=== PATIENT | male | born 1970 | race Caucasian/White ===

== ENCOUNTER 2021-07-29 13:57 | Emergency (ER) | payer OTHER ==
--- NOTE | 2021-07-29 14:52 | XRAY Report ---
PROCEDURE: Hand 3 View RT INDICATIONS: trauma TECHNIQUE: 3 views of the hand(s) acquired. COMPARISON: None FINDINGS: Bones: No fractures or dislocations. No suspicious bony lesions. Soft tissues: No suspicious soft tissue calcifications. IMPRESSION: No fracture. No osseous lesion. If there are persistent symptoms or continued clinical concern for pa thology, then repeat plain film radiographs (7-10 days) or advanced imaging (CT, MR, bone scan) shoul d be considered for further evaluation. Reviewed by: Daya Turk MD, PhD on 07/29/2021 2:51 PM PDT Approved by: Daya Turk MD, PhD on 07/29/2021 2:51 PM PDT Station ID: [id number]
[2021-07-29] MEDS ORDERED: HYDROmorphone 1 MG/ML CARPUJECT IM STA ×2 (14:54→16:40)
[2021-07-29] MEDS ORDERED: BUFFERED LIDOCAINE 10 ML SYRINGE SUBQ STA (14:57)
--- NOTE | 2021-07-29 14:57 | ED Physician Documentation ---
History of Present Illness - Stated complaint Stated Complaint: RT HAND FINGERS INJ - Chief complaint Chief Complaint: Laceration - Treatment prior to arrival Treatment prior to arrival: 51-year-old male presents emergency department for evaluation of right hand lacerations. While at his place of employment and using sheet-metal he had the sheet-metal slip between his hands causing deep lacerations to the middle and ring finger of the right hand. Lacerations are between the PIP and DIP joint. He is unable to flex these fingers at the PIP or DIP joint. Tetanus is up-to-date within the last year. He does have a brisk but dark red bleeding. Patient is right-hand dominant. - Additonal information Additional information: 51-year-old male presents emergency department for evaluation of right hand lacerations. While at his place of employment and using sheet-metal he had the sheet-metal slip between his hands causing deep lacerations to the middle and ring finger of the right hand. Lacerations are between the PIP and DIP joint. Tetanus is up-to-date within the last year. He does have a brisk but dark red bleeding. Patient is right-hand dominant. Pt is a smoker Review of Systems Constitutional: reports: Reviewed and negative Ears: reports: Reviewed and negative Nose: reports: Reviewed and negative Throat: reports: Reviewed and negative Cardiac: reports: Reviewed and negative Respiratory: reports: Reviewed and negative GI: reports: Reviewed and negative : reports: Reviewed and negative Skin: reports: Laceration (s) Musculoskeletal: reports: Reviewed and negative PD PAST MEDICAL HISTORY - Past Medical History Past Medical History: Yes Cardiovascular: None Respiratory: None Neuro: None GI: None : None HEENT: None Psych: None Musculoskeletal: Other Derm: None Other Past Medical History: Torn ACL 20 years ago - Past Surgical History Ortho: Knee replacement - Present Medications Home Medications: Ambulatory Orders Medication Instructions Recorded Confirmed cephALEXin [Keflex] 500 mg PO Q6H #28 cap 07/29/21 oxyCODONE [Roxicodone] 5 mg PO TID PRN #15 tablet 07/29/21 - Allergies Allergies/Adverse Reactions: Allergies Allergy/AdvReac Type Severity Reaction Status Date / Time No Known Drug Allergies Allergy Verified 07/29/21 14:19 - Social History Does the pt smoke?: Yes Smoking Status: Current every day smoker Does the pt drink ETOH?: Yes Does the pt have substance abuse?: No - Immunizations Immunizations are current?: Yes - POLST Patient has POLST: No PD ED PE EXPANDED - Extremities Extremities: Right finger(s) (Deep lacerations of the right middle and ring finger palmar side between PIP and DIP joint. Fingers are held in extension patient is unable to flex at the PIP or DIP joint. Brisk dark bleeding. Brisk cap refill distally. Saturations of 97 to 99% on each digit.) Results - Vitals Vitals: Vital Signs - 24 hr 07/29/21 14:17 Temperature 36.2 C L Heart Rate 71 Respiratory 16 Rate Blood Pressure 134/76 H O2 Saturation 98 Oxygen O2 Source Room air - Rads (name of study) right hand Radiology: Final report received (No fractures or osseous lesions.) Procedures - Laceration (location) right hand middle/ring finger Length in cm: 14 Wound type: Curved, Irregular, Into subcut fat, Into muscle, Contaminated, Heavily Contaminated, Exposure of bone, Exposure of cartilage Tendon involvement: Tendon Injury Anesthesia: Lidocaine 1% Wound preparation: Chlorhexadine, To the base Skin layer closure: Interrupted, Size #-0 - enter number (4), Sutures - enter # (21) Other: Patient tolerated well, No complications, Tetanus UTD PD MEDICAL DECISION MAKING - ED course Complexity details: d/w patient ED course: 51-year-old male presents emergency department with right hand lacerations to the middle and ring finger. This gentleman unfortunately sustained severe deep lacerations to the middle and ring finger with apparent flexor tendon injury of both fingers at the PIP joint. This case was discussed with on-call surgeon Dr. Alves at [facility]. He recommended closure of the skin and follow-up tomorrow at the [facility] hand center. Patient here in the emergency department was given a gram of ceftriaxone and will be discharged on cephalexin. After closure of the wound he was placed in a volar extension splint. I will also write a prescription for limited amount of opiates. Emergent return precautions were discussed. This was a labor and industries event. [id number] I am prescribing a short course of short-acting opioid pain medication for this patient. I have reviewed the patients ANODISER and no concerning findings were noted. I have discussed that the opioids are for short term therapy only, and will not be refilled from the ED. Departure - Departure Disposition: 01 Home, Self Care Clinical Impression: Laceration of right middle finger Qualifiers: Encounter type: initial encounter Damage to nail status: without damage Foreign body presence: without foreign body Qualified Code(s): S61.212A - Laceration without foreign body of right middle finger without damage to nail, initial encounter Laceration of right ring finger Qualifiers: Encounter type: initial encounter Damage to nail status: without damage Foreign body presence: without foreign body Qualified Code(s): S61.214A - Laceration without foreign body of right ring finger without damage to nail, initial encounter Injury of flexor tendon of right hand Qualifiers: Encounter type: initial encounter Qualified Code(s): S66.801A - Unspecified injury of other specified muscles, fascia and tendons at wrist and hand level, right hand, initial encounter Condition: Stable Record reviewed to determine appropriate education?: Yes Prescriptions: cephALEXin [Keflex] 500 mg PO Q6H #28 cap oxyCODONE [Roxicodone] 5 mg PO TID PRN #15 tablet PRN Reason: Pain Comments: Anthony you sustained deep and severe lacerations to the middle and index finger of your right hand. Unfortunately you do have tendon damage. I have spoken with Dr. Alves a surgeon with [facility] hand surgery. He would like to see you in his clinic tomorrow. The orthopedic hand office should be giving you a call but my recommendation is that you make your way to the office about 9:52 AM tomorrow. [facility] at [facility] - [address] [phone] Have electronically sent your prescriptions to the [facility] [place] [address] Is important that you fill the prescription for the Keflex and take 4 times daily as directed. I am prescribing a short course of narcotic pain medication for you. These are potentially dangerous and addictive medications that should be used carefully. These medications may constipate you. Take an [id number]-[id number] stool softener (docusate) twice daily with plenty of water while taking these medications. If you go 24 hours without a bowel movement, take [id number] miralax, per package instructions. Do not drink or drive while taking these medications. If you received narcotic or sedating medications while in the emergency department, do not drive for 24 hours. Store this medication in a safe, secure place and out of reach of children. It is a violation of federal law to give or sell this medication to another person or to use in a manner other than prescribed. The ED will not refill narcotic prescriptions, including prescriptions lost or stolen. To dispose of unwanted medications: 1. [facility] at [address] in [place] has a medication drop box. They accept prescription medications (in pill form) Monday through Monday 9:00 a.m. to 5:00 p.m. 2. The [facility] [place] [employer] accepts prescription medications (in pill form only) for disposal year round. Call for more information. 3. Contact the [facility] for the next [facility] sponsored prescription drug collection event. , x7310, or [phone]; Note that many narcotic pain relievers also contain Tylenol/acetaminophen. Ple ase ensure that your total dose of acetaminophen from all sources does not exceed 3 g (3000 mg) per day.
[2021-07-29] MEDS: BACITRACIN ZINC OINT 1 PACKET TOP STA (15:11)
[2021-07-29] MEDS ORDERED: LIDOCAINE 1% 2 ML VIAL MC ONE (15:24)
[2021-07-29] MEDS ORDERED: cefTRIAXone 1 GM VIAL IM STA (15:24)
[2021-07-29] MEDS ORDERED: HYDROmorphone 1 MG/ML CARPUJECT IVP STA ×2 (16:11→17:27)
[2021-07-29] MEDS ORDERED: SODIUM CHLORIDE 0.9% 1,000 ML IV STA (17:46)
[2021-07-29 19:40] VITALS: BP 137/82
== END 2021-07-29 19:42 | disposition home or self-care (01) ==
LOC: ED 13:57
DX: S61.212A Laceration without foreign body of right middle finger without damage to nail, initial encounter (principal); S61.214A Laceration without foreign body of right ring finger without damage to nail, initial encounter; S66.801A Unspecified injury of other specified muscles, fascia and tendons at wrist and hand level, right hand, initial encounter; W26.8XXA Contact with other sharp object(s), not elsewhere classified, initial encounter; Y99.0 Civilian activity done for income or pay; F17.200 Nicotine dependence, unspecified, uncomplicated
CPT/HCPCS: 1040M; 13132; 13133; 73130; 96372; 96374; 96376; 99283; A9270; J1170; 86803; 87340; 87389